=== PATIENT | male | born 1995 | race Caucasian/White ===

== ENCOUNTER → 2022-01-02 | Outpatient (CLI) | payer OTHER | LOC: M RAD 12:41 | PROVIDERS: ATTEND Internal Medicine | DX: N50.811 Right testicular pain (principal); I86.1 Scrotal varices ==

== ENCOUNTER → 2022-06-17 | Outpatient (REF) | payer OTHER | LOC: M LAB REF 16:24 | PROVIDERS: ATTEND Internal Medicine | DX: Z13.89 Encounter for screening for other disorder (principal) ==